=== PATIENT | male | born 1955 ===

== ENCOUNTER 2024-04-11 13:19 | Day surgery (SDC) | payer MEDICARE, SELFPAY ==
--- NOTE | 2024-04-11 | PATH_ITS ---
[facility] Accession Number: [id number] No. of containers..02 Tissue . 01 Material submitted: . PART A: colon - TRANSVERSE POLYP PART B: colon - RECTAL POLYPS . 01 Diagnosis: A. TRANSVERSE COLON POLYP, BIOPSY: Tubulovillous adenoma. No high-grade dysplasia or malignancy. . B. RECTAL POLYPS, BIOPSY: Tubular adenoma. Hyperplastic polyp. [facility] 04/15/2024 1150 Local . 01 Electronically signed: . Kelsi Torres MD, Pathologist NPI- [id number] . 01 Gross description: . A. Received in formalin with two patient identifiers and transverse colon polyp, consists of a 2.2 x 2.0 x 0.8 cm aggregate of cox-fonseca, slightly hemorrhagic polypoid tissues, which range in size from 0.2 up to 1.1 cm in greatest dimension. The tissue is entirely submitted: A1: The largest polyp is inked and trisected. A2: Two polyps differentially inked and bisected. A3: Remaining fragmented polypoid tissues. B. Received in formalin with two patient identifiers and rectal polyps and consists of two cox-pink, elongated soft tissues averaging 0.8 x 0.2 x 0.1 cm. The specimens are entirely submitted in cassette B1. ([id number]) /MRV 04/12/2024 0944 Local . 01 Pathologist provided ICD-10: D12.3, D12.8 . 01 CPT . 368322, [id number] Specimen Comment: A courtesy copy of this report has been sent to [phone] Performed at: [address] [facility], [place], [place] [id number] MD Johann Santana MD Phone: [phone]
[2024-04-11 13:42] VITALS: BP 160/101; PULSE 82; RESP 14; TEMP 35.3; O2SAT 96
--- NOTE | 2024-04-11 13:53 | PM.PREOP ---
Pre-operative Note COVID-19 COVID-19 status: Not tested Interval Note History & Physical reviewed/Exam performed by Physician: Yes Changes to H&P: No ASA Class (for procedural sedation): II
--- NOTE | 2024-04-11 15:32 | PM.OP.COLON ---
Operative Date/Time/Diagnoses Date of procedure: 04/11/24 Time of procedure: 15:32 Pre-op diagnosis: Positive fecal immunochemical test Post-op diagnosis: same Procedure & Clinicians Study performed: Colonoscopy Same procedure as scheduled: Yes Surgeon: Chandan Bowie Procedure Notes Procedure in detail: Surgeon: Chandan Bowie MD Anesthesia: Luz Maria Knapp CRNA Procedure: The patient was brought to the endoscopy suite, placed in left lateral decubitus position. The patient was connected to monitoring devices. A time-out was performed. Sedation was administered. Once the patient was adequately sedated, a digital rectal exam was performed and was normal. The scope was then inserted and advanced to the cecum where the appendiceal orifice was identified and photographed. The scope was then slowly withdrawn over greater than 6 minutes. The mucosa was thoroughly inspected. There was a large polyp near the splenic flexure in the distal transverse colon. The polyp was roughly 3 cm. The polyp was removed piecemeal using hot snare as well as some cold snare at the base. Large fragments of the polyp were removed with a Davenport net. We injected tattoo ink across from, proximal to and distal to the polypectomy scar. There were 2 small polyps in the rectum removed with a cold snare and sent together. The scope was retroflexed in the rectum. No other abnormalities were found. The scope was straightened and removed. The patient was awakened and brought to recovery. Scope withdrawal time: 44 minutes Sedation time: 47 minutes EBL: 10 mL Findings: 3 cm polyp near the splenic flexure, 2 small polyps in the rectum Post-procedure Disposition: PACU
[2024-04-11 15:38] VITALS: BP 109/81; PULSE 105; RESP 90; TEMP 36.1; O2SAT 2
[2024-04-11 15:40] VITALS: BP 119/88; PULSE 102; RESP 20; O2SAT 94
[2024-04-11 15:44] VITALS: BP 129/91; PULSE 96; RESP 14; O2SAT 94
[2024-04-11 15:51] VITALS: BP 121/95; PULSE 99; RESP 15; O2SAT 96
== END 2024-04-11 16:15 | disposition home or self-care (01) ==
PROVIDERS: PCP Internal Medicine; Referring Provider Surgery; Visit Provider Surgery
PROC: 0DJD8ZZ Inspection of Lower Intestinal Tract, Via Natural or Artificial Opening Endoscopic (ICD-10-PCS; CPT 45378; principal; 2024-04-11 14:45)
DX: Z12.11 Encounter for screening for malignant neoplasm of colon (principal); R19.5 Other fecal abnormalities; D12.3 Benign neoplasm of transverse colon; D12.8 Benign neoplasm of rectum
CPT/HCPCS: 45385; 45381; J2704